=== PATIENT | female | born 1955 | race African-American/Black ===

== ENCOUNTER 2016-09-18 14:42 | Inpatient (IN) | payer MEDICAID ==
[~2016-09-18] VITALS: Ht 154.9 cm; Wt 81.6 kg
[2016-09-18] MEDS ORDERED: metroNIDAZOLE 500mg 100 ML IV SCH (15:00)
[2016-09-18] MEDS ORDERED: Ampicillin/Sulbactam Sod 3 GM in NS 110 ML IV SCH (15:00)
--- NOTE | 2016-09-18 15:11 | Emergency Room Report ---
History of Present Illness General Chief Complaint: Dyspnea/Respdistress Source: Patient Present Illness HPI Patient is a 60-year-old female who presented after having increased left-sided flank pain as well as recent syncopal episodes. The patient had reported having some increased dizziness. She had been having flank pain intermittently for the past 3 days. Patient denied having any dysuria. She had not been vomiting or having diarrhea. Patient had no prior cardiac history. She denies seen a doctor regularly. Allergies: Coded Allergies: ASPIRIN (Verified Allergy, Unknown, 09/18/16) Patient History Past Medical History: see triage record Now: No Reviewed Nursing Documentation: PMH: Agreed, PSxH: Agreed Nursing Documentation-PMH Past Medical History: No Stated History Review of Systems All Other Systems: negative except mentioned in HPI Physical Exam Vital Signs Date Time Temp Pulse Resp B/P Pulse Ox O2 Delivery O2 Flow Rate FiO2 09/18/16 14:48 101.5 132 20 134/77 93 Room Air Sp02 EP Interpretation: reviewed, normal General Appearance: normal inspection, no apparent distress, alert, GCS 15 Head: atraumatic ENT: normal ENT inspection, hearing grossly normal, normal voice Neck: normal inspection, full range of motion, supple, no bony tend Respiratory: normal inspection, lungs clear, normal breath sounds, no respiratory distress, no retraction, no wheezing Cardiovascular #1: regular rate, rhythm, no edema Gastrointestinal: normal inspection, normal bowel sounds, non tender, soft, no guarding, no hernia Genitourinary: CVA tenderness (L) Musculoskeletal: normal inspection, back normal, normal range of motion Neurologic: normal inspection, alert, oriented x3, responsive, energy risk management analyst III-XII nml as tested, speech normal Psychiatric: normal inspection, judgement/insight normal, mood/affect normal Skin: normal inspection, normal color, no rash Medical Decision Making Diagnostic Impression: Primary Impression: Pneumonia Additional Impression: Sepsis ER Course Patient presented for abdominal pain. Differential diagnoses included ischemic bowel, appendicitis, perforated viscus, abdominal aortic aneurysm, inferior myocardial infarction, viral gastroenteritis Because of complexity of patient's case laboratory testing and imaging studies were ordered.Laboratory testing was notable for elevated white blood count. Patient started on IV fluids and IV antibiotics. A CT abdomen pelvis was ordered. A CT abdomen pelvis read by radiology showed bibasilar lung infiltrate right greater than left with fat-containing umbilical hernia. Urinalysis showed no evidence of infection.Dr. Giles was contacted for inpatient management due to need for inpatient monitoring and treatment. Labs Test 09/18/16 16:00 White Blood Count 16.3 K/UL (4.8-10.8) Red Blood Count 4.67 M/UL (4.20-5.40) Hemoglobin 13.4 G/DL (12.0-16.0) Hematocrit 40.1 % (37.0-47.0) Mean Corpuscular Volume 86 FL (80-99) Mean Corpuscular Hemoglobin 28.7 PG (27.0-31.0) Mean Corpuscular Hemoglobin Concent 33.4 G/DL (32.0-36.0) Red Cell Distribution Width 12.6 % (11.6-14.8) Platelet Count 203 K/UL (150-450) Mean Platelet Volume 6.4 FL (6.5-10.1) Neutrophils (%) (Auto) % (45.0-75.0) Lymphocytes (%) (Auto) % (20.0-45.0) Monocytes (%) (Auto) % (1.0-10.0) Eosinophils (%) (Auto) % (0.0-3.0) Basophils (%) (Auto) % (0.0-2.0) Sodium Level 138 mEQ/L (135-145) Potassium Level 3.6 mEQ/L (3.4-4.9) Chloride Level 98 mEQ/L (98-107) Carbon Dioxide Level 23 mEQ/L (20-30) Anion Gap 17 (5-15) Blood Urea Nitrogen 13 mg/dL (7-23) Creatinine 0.9 mg/dL (0.5-0.9) Estimat Glomerular Filtration Rate > 60 mL/min (>60) Glucose Level 108 mg/dL (74-106) Lactic Acid Level 2.00 mmol/L (0.66-2.22) Calcium Level 8.9 mg/dL (8.6-10.2) Total Bilirubin 0.3 mg/dL (0.0-1.2) Aspartate Amino Transf (AST/SGOT) 33 U/L (5-40) Alanine Aminotransferase (ALT/SGPT) 22 U/L (3-33) Alkaline Phosphatase 81 U/L (35-104) Total Creatine Kinase 620 U/L (26-140) Creatine Kinase MB 4.1 ng/mL (< 3.8) Creatine Kinase MB Relative Index 0.6 Troponin I < 0.30 ng/mL (<=0.30) Total Protein 7.4 g/dL (6.6-8.7) Albumin 3.9 g/dL (3.5-5.2) Globulin 3.5 g/dL Albumin/Globulin Ratio 1.1 (1.0-2.7) EKG Diagnostic Results Rate: tachycardiac - 124 Rhythm: NSR ST Segments: no acute changes - 124 Rhythm Strip Diag. Results EP Interpretation: yes Rhythm: NSR - 128, no PVC's, no ectopy Last Vital Signs Date Time Temp Pulse Resp B/P Pulse Ox O2 Delivery O2 Flow Rate FiO2 09/18/16 14:48 101.5 132 20 134/77 93 Room Air Status: unchanged Disposition: ADMITTED INPATIENT Condition: Serious Gabino Elias Sep 18, 2016 15:11
[2016-09-18] MEDS ORDERED: Unasyn 3gm Inj ONE (15:43)
[2016-09-18 16:45] LABS: MEAN CORPUSCULAR HEMOGLOBIN 28.7 PG (27.0-31.0); MEAN CORPUSCULAR HGB CONC 33.4 G/DL (32.0-36.0); MEAN CORPUSCULAR VOLUME 86 FL (80-99); MEAN PLATELET VOLUME 6.4 FL (6.5-10.1); PLATELET COUNT 203 K/UL (150-450); RED BLOOD COUNT 4.67 M/UL (4.20-5.40); RED CELL DISTRIBUTION WIDTH 12.6 % (11.6-14.8); WHITE BLOOD COUNT 16.3 K/UL (4.8-10.8)
[2016-09-18 16:51] VITALS: BP 134/77
[2016-09-18 17:03] LABS: TROPONIN I < 0.30 ng/mL (<=0.30)
[2016-09-18 17:04] LABS: ALANINE AMINOTRANSFERASE 22 U/L (3-33); ALBUMIN/GLOBULIN RATIO 1.1 (1.0-2.7); ANION GAP 17 (5-15); ASPARTATE AMINO TRANSFERASE 33 U/L (5-40); CALCIUM 8.9 mg/dL (8.6-10.2); CARBON DIOXIDE 23 mEQ/L (20-30); CHLORIDE 98 mEQ/L (98-107); CREATININE 0.9 mg/dL (0.5-0.9); GLOMERULAR FILTRATION RATE > 60 mL/min (>60); HEMOLYSIS 5; POTASSIUM 3.6 mEQ/L (3.4-4.9); SODIUM 138 mEQ/L (135-145); TOTAL PROTEIN 7.4 g/dL (6.6-8.7)
[2016-09-18 17:11] LABS: REFLEX LACTIC ACID YES OR NO YES
[2016-09-18 17:14] LABS: CKMB 4.1 ng/mL (< 3.8)
[2016-09-18 17:28] LABS: BAND NEUTROPHILS % (MANUAL) 8 % (0-8); BASOPHILS % (MANUAL) 0 % (0-2); EOSINOPHILS % (MANUAL) 0 % (0-3); LYMPHOCYTES % (MANUAL) 2 % (20-45); NEUTROPHILS % (MANUAL) 82 % (45-75); PLATELET ESTIMATE ADEQUATE; PLATELET MORPHOLOGY NORMAL; TOTAL CELLS COUNTED 100
[2016-09-18 17:32] LABS: APPEARANCE,URINE CLEAR; KETONES,URINE NEGATIVE (NEGATIVE); LEUKOCYTE ESTERASE ,URINE NEGATIVE (NEGATIVE); NITRITE,URINE NEGATIVE (NEGATIVE); PH,URINE 5 (4.5-8.0); PROTEIN,URINE NEGATIVE (NEGATIVE); UROBILINOGEN,URINE NORMAL MG/DL (0.0-1.0)
[2016-09-18 17:38] LABS: RBC,URINE 0-2 /HPF (0 - 2); SQUAMOUS EPITHELIAL CELL,UR OCCASIONAL /LPF (NONE/OCC); WBC,URINE 0-2 /HPF (0 - 2)
[2016-09-18] MEDS ORDERED: NKM (17:56)
--- NOTE | 2016-09-18 18:49 | Cardiology Progress Note ---
Assessment/Plan Assessment/Plan The patient is seen and examined, full consult note will be dictated. Objective Last 24 Hour Vital Signs Date Time Temp Pulse Resp B/P Pulse Ox O2 Delivery O2 Flow Rate FiO2 09/18/16 16:53 115 20 Room Air 09/18/16 16:51 101.5 95 21 134/77 95 Room Air 09/18/16 14:48 101.5 132 20 134/77 93 Room Air Laboratory Tests Test 09/18/16 16:00 09/18/16 17:20 White Blood Count 16.3 K/UL (4.8-10.8) H Red Blood Count 4.67 M/UL (4.20-5.40) Hemoglobin 13.4 G/DL (12.0-16.0) Hematocrit 40.1 % (37.0-47.0) Mean Corpuscular Volume 86 FL (80-99) Mean Corpuscular Hemoglobin 28.7 PG (27.0-31.0) Mean Corpuscular Hemoglobin Concent 33.4 G/DL (32.0-36.0) Red Cell Distribution Width 12.6 % (11.6-14.8) Platelet Count 203 K/UL (150-450) Mean Platelet Volume 6.4 FL (6.5-10.1) L Neutrophils (%) (Auto) % (45.0-75.0) Lymphocytes (%) (Auto) % (20.0-45.0) Monocytes (%) (Auto) % (1.0-10.0) Eosinophils (%) (Auto) % (0.0-3.0) Basophils (%) (Auto) % (0.0-2.0) Differential Total Cells Counted 100 Neutrophils % (Manual) 82 % (45-75) H Lymphocytes % (Manual) 2 % (20-45) L Monocytes % (Manual) 8 % (1-10) Eosinophils % (Manual) 0 % (0-3) Basophils % (Manual) 0 % (0-2) Band Neutrophils 8 % (0-8) Platelet Estimate Adequate Platelet Morphology Normal Red Blood Cell Morphology Normal Sodium Level 138 mEQ/L (135-145) Potassium Level 3.6 mEQ/L (3.4-4.9) Chloride Level 98 mEQ/L (98-107) Carbon Dioxide Level 23 mEQ/L (20-30) Anion Gap 17 (5-15) H Blood Urea Nitrogen 13 mg/dL (7-23) Creatinine 0.9 mg/dL (0.5-0.9) Estimat Glomerular Filtration Rate > 60 mL/min (>60) Glucose Level 108 mg/dL (74-106) H Lactic Acid Level 2.00 mmol/L (0.66-2.22) Calcium Level 8.9 mg/dL (8.6-10.2) Total Bilirubin 0.3 mg/dL (0.0-1.2) Aspartate Amino Transf (AST/SGOT) 33 U/L (5-40) Alanine Aminotransferase (ALT/SGPT) 22 U/L (3-33) Alkaline Phosphatase 81 U/L (35-104) Total Creatine Kinase 620 U/L (26-140) H Creatine Kinase MB 4.1 ng/mL (< 3.8) H Creatine Kinase MB Relative Index 0.6 Troponin I < 0.30 ng/mL (<=0.30) Total Protein 7.4 g/dL (6.6-8.7) Albumin 3.9 g/dL (3.5-5.2) Globulin 3.5 g/dL Albumin/Globulin Ratio 1.1 (1.0-2.7) Urine Color Pale yellow Urine Appearance Clear Urine pH 5 (4.5-8.0) Urine Specific [place] 1.015 (1.005-1.035) Urine Protein Negative (NEGATIVE) Urine Glucose (UA) Negative (NEGATIVE) Urine Ketones Negative (NEGATIVE) Urine Occult Blood 1+ (NEGATIVE) H Urine Nitrite Negative (NEGATIVE) Urine Bilirubin Negative (NEGATIVE) Urine Urobilinogen Normal MG/DL (0.0-1.0) Urine Leukocyte Esterase Negative (NEGATIVE) Urine RBC 0-2 /HPF (0 - 2) Urine WBC 0-2 /HPF (0 - 2) Urine Squamous Epithelial Cells Occasional /LPF Urine Bacteria None /HPF (NONE) MIGUEL ÁNGEL LEWIS Sep 18, 2016 18:49
[2016-09-18 19:19] VITALS: BP 114/71
[2016-09-18 19:21] VITALS: BP 115/76
[2016-09-18 19:22] VITALS: BP 123/67
[2016-09-18 20:00] VITALS: BP 135/69
[2016-09-18] MEDS ORDERED: Norco 10mg/325mg tab ORAL PRN (20:15)
[2016-09-18] MEDS: Heparin 5000 units/ml inj SUBQ SCH (20:54)
[2016-09-18] MEDS ORDERED: cefTRIAXone 2 GM in D5W 110 ML IVPB SCH (21:00)
[2016-09-18] MEDS ORDERED: Azithromycin 500 MG in D5W 275 ML IV SCH (22:00)
[2016-09-19] VITALS (7 sets, daily range): BP systolic 95–131; BP diastolic 53–83
[2016-09-19 07:58] LABS: MEAN CORPUSCULAR HEMOGLOBIN 27.8 PG (27.0-31.0); MEAN CORPUSCULAR HGB CONC 32.2 G/DL (32.0-36.0); MEAN CORPUSCULAR VOLUME 86 FL (80-99); MEAN PLATELET VOLUME 7.2 FL (6.5-10.1); PLATELET COUNT 231 K/UL (150-450); RED BLOOD COUNT 4.46 M/UL (4.20-5.40); RED CELL DISTRIBUTION WIDTH 12.7 % (11.6-14.8); WHITE BLOOD COUNT 18.2 K/UL (4.8-10.8)
[2016-09-19 08:18] LABS: ALANINE AMINOTRANSFERASE 17 U/L (3-33); ALBUMIN/GLOBULIN RATIO 0.9 (1.0-2.7); ANION GAP 12 (5-15); ASPARTATE AMINO TRANSFERASE 24 U/L (5-40); CALCIUM 8.4 mg/dL (8.6-10.2); CARBON DIOXIDE 27 mEQ/L (20-30); CHLORIDE 101 mEQ/L (98-107); CHOLESTEROL 156 mg/dL (< 200); CHOLESTEROL/HDL RATIO 2.5 (3.3-4.4); CREATININE 0.9 mg/dL (0.5-0.9); GLOMERULAR FILTRATION RATE > 60 mL/min (>60); HEMOLYSIS 11; LDL CHOLESTEROL (CALC.) 78 mg/dL (60-99); SODIUM 140 mEQ/L (135-145); TOTAL PROTEIN 6.9 g/dL (6.6-8.7)
[2016-09-19 08:25] LABS: HEMOGLOBIN A1C 5.7 % (< 6.0)
[2016-09-19 08:44] LABS: BAND NEUTROPHILS % (MANUAL) 0 % (0-8); BASOPHILS % (MANUAL) 1 % (0-2); EOSINOPHILS % (MANUAL) 0 % (0-3); LYMPHOCYTES % (MANUAL) 18 % (20-45); NEUTROPHILS % (MANUAL) 74 % (45-75); PLATELET ESTIMATE ADEQUATE; PLATELET MORPHOLOGY NORMAL; TOTAL CELLS COUNTED 100
--- NOTE | 2016-09-19 08:56 | Diagnostic Imaging Report ---
Indication: Left flank pain Technique: Continuous helical scanning was performed without any contrast material from the diaphragms through the pelvis . Axial, sagittal, and coronal images were generated. Dose: Total Dose Length Product - DLP [address] Dose Index - CTDIvol(s) 17.73 mGy. Comparison: None Findings: There is mixed interstitial and alveolar infiltrates in the right lower lobe. Some patchy groundglass density is also noted in the left lower lobe. The liver is low density. The gallbladder is unremarkable. The spleen is normal. The pancreas is normal. Aorta and inferior vena cava are normal caliber. There are some calcified nodes in the retroperitoneum. The kidneys are unremarkable. The bowel is normal caliber. The appendix is normal in caliber. The bladder is normal. Uterus is absent. Ovaries are not identified. Mild degenerative changes noted in the spine. There is a small umbilical hernia containing fat. Impression: Calcified nodes in the retroperitoneum consistent with old granulomatous disease. Normal appendix. No evidence of urinary calculi. Fatty liver. Bilateral lower lobe pulmonary infiltrates, right greater than left. Small umbilical hernia containing fat. The above report is concordant with preliminary reading by [facility] . The CT scanner at [facility] is accredited by the [employer] and the scans are performed using protocols designed to limit radiation exposure to as low as reasonably achievable to attain images of sufficient resolution adequate for diagnostic evaluation.
[2016-09-19] MEDS: Heparin 5000 units/ml inj SUBQ SCH ×2 (09:04→22:01)
--- NOTE | 2016-09-19 10:20 | History & Physical ---
History and Physical History & Physicial seen and examined. Dictation completed Hannah Giles MD Sep 19, 2016 10:20
--- NOTE | 2016-09-19 10:22 | General Progress Note ---
Assessment/Plan Status: stable Assessment/Plan 1- Acute encephalopathy 2- Sepsis: source work in progress! 3- Right LL infiltrate plan: neuro, cardio, ID services are consulted Subjective ROS Limited/Unobtainable: No Constitutional: Reports: malaise HEENT: Reports: no symptoms Cardiovascular: Reports: no symptoms Respiratory: Reports: no symptoms Gastrointestinal/Abdominal: Reports: no symptoms Allergies: Coded Allergies: ASPIRIN (Verified Allergy, Unknown, 09/18/16) Objective Last 24 Hour Vital Signs Date Time Temp Pulse Resp B/P Pulse Ox O2 Delivery O2 Flow Rate FiO2 09/19/16 04:00 97.9 74 18 101/53 97 Room Air 09/19/16 04:00 74 101 85 09/19/16 04:00 67 09/19/16 00:00 98.1 83 18 95/62 95 Room Air 09/19/16 00:00 84 09/18/16 21:53 98.7 09/18/16 20:00 100.6 103 20 135/69 95 Room Air 09/18/16 19:39 99.1 09/18/16 19:39 99.1 09/18/16 19:37 99.3 112 20 123/67 95 Room Air 09/18/16 19:22 99.3 112 20 123/67 95 Room Air 09/18/16 19:21 101.5 105 20 115/76 95 Room Air 09/18/16 19:19 101.5 105 20 114/71 95 Room Air 09/18/16 16:53 115 20 Room Air 09/18/16 16:51 101.5 95 21 134/77 95 Room Air 09/18/16 14:48 101.5 132 20 134/77 93 Room Air Intake and Output 09/18/16 09/19/16 19:00 07:00 Intake Total 1150 ml 625 ml Balance 1150 ml 625 ml Intake Oral 240 ml IV Total 385 ml Other 1150 ml # Voids 1 # Bowel Movements 1 Laboratory Tests 09/18/16 16:00: White Blood Count 16.3H, Red Blood Count 4.67, Hemoglobin 13.4, Hematocrit 40.1 , Mean Corpuscular Volume 86, Mean Corpuscular Hemoglobin 28.7, Mean Corpuscular Hemoglobin Concent 33.4, Red Cell Distribution Width 12.6, Platelet Count 203, Mean Platelet Volume 6.4L, Neutrophils (%) (Auto) , Lymphocytes (%) ( Auto) , Monocytes (%) (Auto) , Eosinophils (%) (Auto) , Basophils (%) (Auto) , Differential Total Cells Counted 100, Neutrophils % (Manual) 82H, Lymphocytes % (Manual) 2L, Monocytes % (Manual) 8, Eosinophils % (Manual) 0, Basophils % ( Manual) 0, Band Neutrophils 8, Platelet Estimate Adequate, Platelet Morphology Normal, Red Blood Cell Morphology Normal, Sodium Level 138, Potassium Level 3.6 , Chloride Level 98, Carbon Dioxide Level 23, Anion Gap 17H, Blood Urea Nitrogen 13, Creatinine 0.9, Estimat Glomerular Filtration Rate > 60, Glucose Level 108H, Lactic Acid Level 2.00, Calcium Level 8.9, Total Bilirubin 0.3, Aspartate Amino Transf (AST/SGOT) 33, Alanine Aminotransferase (ALT/SGPT) 22, Alkaline Phosphatase 81, Total Creatine Kinase 620H, Creatine Kinase MB 4.1H, Creatine Kinase MB Relative Index 0.6, Troponin I < 0.30, Total Protein 7.4, Albumin 3.9, Globulin 3.5, Albumin/Globulin Ratio 1.1 09/18/16 17:20: Urine Color Pale yellow, Urine Appearance Clear, Urine pH 5, Urine Specific [place] 1.015, Urine Protein Negative, Urine Glucose (UA) Negative, Urine Ketones Negative, Urine Occult Blood 1+H, Urine Nitrite Negative, Urine Bilirubin Negative, Urine Urobilinogen Normal, Urine Leukocyte Esterase Negative , Urine RBC 0-2, Urine WBC 0-2, Urine Squamous Epithelial Cells Occasional, Urine Bacteria None 09/18/16 19:21: Lactic Acid Level 1.00 09/19/16 07:27: White Blood Count 18.2H, Red Blood Count 4.46, Hemoglobin 12.4, Hematocrit 38.4 , Mean Corpuscular Volume 86, Mean Corpuscular Hemoglobin 27.8, Mean Corpuscular Hemoglobin Concent 32.2, Red Cell Distribution Width 12.7, Platelet Count 231, Mean Platelet Volume 7.2, Neutrophils (%) (Auto) , Lymphocytes (%) ( Auto) , Monocytes (%) (Auto) , Eosinophils (%) (Auto) , Basophils (%) (Auto) , Differential Total Cells Counted 100, Neutrophils % (Manual) 74, Lymphocytes % ( Manual) 18L, Monocytes % (Manual) 7, Eosinophils % (Manual) 0, Basophils % ( Manual) 1, Band Neutrophils 0, Platelet Estimate Adequate, Platelet Morphology Normal, Red Blood Cell Morphology Normal, Sodium Level 140, Potassium Level 4.0 , Chloride Level 101, Carbon Dioxide Level 27, Anion Gap 12, Blood Urea Nitrogen 11, Creatinine 0.9, Estimat Glomerular Filtration Rate > 60, Glucose Level 95, Calcium Level 8.4L, Total Bilirubin 0.4, Aspartate Amino Transf (AST/ SGOT) 24, Alanine Aminotransferase (ALT/SGPT) 17, Alkaline Phosphatase 70, Total Protein 6.9, Albumin 3.4L, Globulin 3.5, Albumin/Globulin Ratio 0.9L, Hemoglobin A1c 5.7, Pro-B-Type Natriuretic Peptide 119, Triglycerides Level 81, Cholesterol Level 156, LDL Cholesterol 78, HDL Cholesterol 62H, Cholesterol/HDL Ratio 2.5L, Thyroid Stimulating Hormone (TSH) 2.370 Height (Feet): 5 Height (Inches): 1.00 Weight (Pounds): 180 General Appearance: no apparent distress EENT: PERRL/EOMI Neck: supple Cardiovascular: normal rate Respiratory/Chest: lungs clear Abdomen: soft Extremities: non-tender Neurologic: crane hooker II-XII grossly normal, oriented x 3 Hannah Giles MD Sep 19, 2016 10:22
--- NOTE | 2016-09-19 11:21 | Diagnostic Imaging Report ---
Indication: PAIN Technique: Continuous helical CT scanning of the head was performed without intravenous contrast material. Axial and coronal 5 mm sections were generated. Dose: Total Dose Length Product - DLP [address] Dose Index - CTDIvol(s) 70.38 mGy. 1277 Comparison:None. Findings: The ventricular system is normal in size and configuration. There is no shift of midline structures. No abnormal extra-axial fluid collections are noted. There is no evidence of intracerebral bleeding. No other abnormal high or low density areas are noted within the brain. Impression: Normal CT scan of the head without contrast material. The CT scanner at [facility] is accredited by the [place] [employer] and the scans are performed using protocols designed to limit radiation exposure to as low as reasonably achievable to attain images of sufficient resolution adequate for diagnostic evaluation.
[2016-09-19] MEDS ORDERED: Tubing IV Secondary IV ONE (13:36)
--- NOTE | 2016-09-19 15:44 | Cardiology Progress Note ---
Assessment/Plan Assessment/Plan 1. Syncopal event, most likely due to hypovolemia, in view of recent respiratory infection, initial orthostatics were positive, s/p hydration in ED. No cardiac arrhythmias so far. 2. Normal LVEF at 65%. 3. Hx of recurrent syncope. Subjective Subjective Sinus rhythm at 85. Orthostatic vitals are negative. Objective Last 24 Hour Vital Signs Date Time Temp Pulse Resp B/P Pulse Ox O2 Delivery O2 Flow Rate FiO2 09/19/16 12:00 97.9 81 19 119/71 97 Room Air 09/19/16 12:00 77 09/19/16 10:24 98.1 75 18 122/69 98 Room Air 09/19/16 09:00 80 86 85 09/19/16 08:00 98.0 77 18 121/64 96 Room Air 09/19/16 08:00 72 09/19/16 04:00 97.9 74 18 101/53 97 Room Air 09/19/16 04:00 74 101 85 09/19/16 04:00 67 09/19/16 00:00 98.1 83 18 95/62 95 Room Air 09/19/16 00:00 84 09/18/16 21:53 98.7 09/18/16 20:00 100.6 103 20 135/69 95 Room Air 09/18/16 19:39 99.1 09/18/16 19:39 99.1 09/18/16 19:37 99.3 112 20 123/67 95 Room Air 09/18/16 19:22 99.3 112 20 123/67 95 Room Air 09/18/16 19:21 101.5 105 20 115/76 95 Room Air 09/18/16 19:19 101.5 105 20 114/71 95 Room Air 09/18/16 16:53 115 20 Room Air 09/18/16 16:51 101.5 95 21 134/77 95 Room Air Intake and Output 09/18/16 09/19/16 19:00 07:00 Intake Total 1150 ml 625 ml Balance 1150 ml 625 ml Intake Oral 240 ml IV Total 385 ml Other 1150 ml # Voids 1 # Bowel Movements 1 2D Echo: LVEF 65%, rvsp 20 mmHg Laboratory Tests Test 09/18/16 16:00 09/18/16 17:20 09/18/16 19:21 09/19/16 07:27 White Blood Count 16.3 K/UL (4.8-10.8) H 18.2 K/UL (4.8-10.8) H Red Blood Count 4.67 M/UL (4.20-5.40) 4.46 M/UL (4.20-5.40) Hemoglobin 13.4 G/DL (12.0-16.0) 12.4 G/DL (12.0-16.0) Hematocrit 40.1 % (37.0-47.0) 38.4 % (37.0-47.0) Mean Corpuscular Volume 86 FL (80-99) 86 FL (80-99) Mean Corpuscular Hemoglobin 28.7 PG (27.0-31.0) 27.8 PG (27.0-31.0) Mean Corpuscular Hemoglobin Concent 33.4 G/DL (32.0-36.0) 32.2 G/DL (32.0-36.0) Red Cell Distribution Width 12.6 % (11.6-14.8) 12.7 % (11.6-14.8) Platelet Count 203 K/UL (150-450) 231 K/UL (150-450) Mean Platelet Volume 6.4 FL (6.5-10.1) L 7.2 FL (6.5-10.1) Neutrophils (%) (Auto) % (45.0-75.0) % (45.0-75.0) Lymphocytes (%) (Auto) % (20.0-45.0) % (20.0-45.0) Monocytes (%) (Auto) % (1.0-10.0) % (1.0-10.0) Eosinophils (%) (Auto) % (0.0-3.0) % (0.0-3.0) Basophils (%) (Auto) % (0.0-2.0) % (0.0-2.0) Differential Total Cells Counted 100 100 Neutrophils % (Manual) 82 % (45-75) H 74 % (45-75) Lymphocytes % (Manual) 2 % (20-45) L 18 % (20-45) L Monocytes % (Manual) 8 % (1-10) 7 % (1-10) Eosinophils % (Manual) 0 % (0-3) 0 % (0-3) Basophils % (Manual) 0 % (0-2) 1 % (0-2) Band Neutrophils 8 % (0-8) 0 % (0-8) Platelet Estimate Adequate Adequate Platelet Morphology Normal Normal Red Blood Cell Morphology Normal Normal Sodium Level 138 mEQ/L (135-145) 140 mEQ/L (135-145) Potassium Level 3.6 mEQ/L (3.4-4.9) 4.0 mEQ/L (3.4-4.9) Chloride Level 98 mEQ/L (98-107) 101 mEQ/L (98-107) Carbon Dioxide Level 23 mEQ/L (20-30) 27 mEQ/L (20-30) Anion Gap 17 (5-15) H 12 (5-15) Blood Urea Nitrogen 13 mg/dL (7-23) 11 mg/dL (7-23) Creatinine 0.9 mg/dL (0.5-0.9) 0.9 mg/dL (0.5-0.9) Estimat Glomerular Filtration Rate > 60 mL/min (>60) > 60 mL/min (>60) Glucose Level 108 mg/dL (74-106) H 95 mg/dL (74-106) Lactic Acid Level 2.00 mmol/L (0.66-2.22) 1.00 mmol/L (0.66-2.22) Calcium Level 8.9 mg/dL (8.6-10.2) 8.4 mg/dL (8.6-10.2) L Total Bilirubin 0.3 mg/dL (0.0-1.2) 0.4 mg/dL (0.0-1.2) Aspartate Amino Transf (AST/SGOT) 33 U/L (5-40) 24 U/L (5-40) Alanine Aminotransferase (ALT/SGPT) 22 U/L (3-33) 17 U/L (3-33) Alkaline Phosphatase 81 U/L (35-104) 70 U/L (35-104) Total Creatine Kinase 620 U/L (26-140) H Creatine Kinase MB 4.1 ng/mL (< 3.8) H Creatine Kinase MB Relative Index 0.6 Troponin I < 0.30 ng/mL (<=0.30) Total Protein 7.4 g/dL (6.6-8.7) 6.9 g/dL (6.6-8.7) Albumin 3.9 g/dL (3.5-5.2) 3.4 g/dL (3.5-5.2) L Globulin 3.5 g/dL 3.5 g/dL Albumin/Globulin Ratio 1.1 (1.0-2.7) 0.9 (1.0-2.7) L Urine Color Pale yellow Urine Appearance Clear Urine pH 5 (4.5-8.0) Urine Specific [place] 1.015 (1.005-1.035) Urine Protein Negative (NEGATIVE) Urine Glucose (UA) Negative (NEGATIVE) Urine Ketones Negative (NEGATIVE) Urine Occult Blood 1+ (NEGATIVE) H Urine Nitrite Negative (NEGATIVE) Urine Bilirubin Negative (NEGATIVE) Urine Urobilinogen Normal MG/DL (0.0-1.0) Urine Leukocyte Esterase Negative (NEGATIVE) Urine RBC 0-2 /HPF (0 - 2) Urine WBC 0-2 /HPF (0 - 2) Urine Squamous Epithelial Cells Occasional /LPF Urine Bacteria None /HPF (NONE) Hemoglobin A1c 5.7 % (< 6.0) Pro-B-Type Natriuretic Peptide 119 pg/mL (0-125) Triglycerides Level 81 mg/dL (< 150) Cholesterol Level 156 mg/dL (< 200) LDL Cholesterol 78 mg/dL (60-99) HDL Cholesterol 62 mg/dL (> 60) H Cholesterol/HDL Ratio 2.5 (3.3-4.4) L Thyroid Stimulating Hormone (TSH) 2.370 uIU/mL (0.300-4.500) Objective HEENT: Normocephalic, atraumatic, PERRLA, EOMI Neck: - JVD, no carotid bruit Respiratory: coarse breath sounds B/L Cardiovascular: Normal S1S2, tachycardic, regular, rate and rhythm, no murmurs , gallops or rubs. Gastrointestinal: normal inspection, normal bowel sounds, non tender, soft, no guarding, no hernia Musculoskeletal: normal inspection, back normal, normal range of motion Skin: normal inspection, normal color, no rash MIGUEL ÁNGEL LEWIS Sep 19, 2016 15:44
[2016-09-19 16:49] LABS: TROPONIN I < 0.30 ng/mL (<=0.30)
[2016-09-19] MEDS ORDERED: Norco 10mg/325mg tab ORAL PRN (18:00)
[2016-09-19] MEDS: cefTRIAXone 2 GM in D5W 110 ML IVPB SCH (21:00)
[2016-09-19] MEDS ORDERED: Azithromycin 500 MG in D5W 275 ML IV SCH (22:00)
--- NOTE | 2016-09-19 22:18 | History and Physical Report ---
DATE OF ADMISSION: 09/18/2016 SOURCE OF INFORMATION: Patient and EMR. HISTORY OF PRESENT ILLNESS: The patient is a pleasant 60-year-old female with unremarkable past medical history who presented with the acute onset of loss of consciousness. It happened at home. No weakness. Possibility of the head trauma cannot be excluded. No reported loss of control over the bladder or bowel has been reported by the patient after she gained her consciousness. COURSE OF THE ER ASSESSMENT: Proved the patient has fever of 101 degrees and tachycardic as much as 130. Initial evaluation of the abdomen and pelvic CT scan did not show any evidence of acute pathology except bilateral pulmonary infiltrates. PAST MEDICAL HISTORY: Denies. PAST SURGICAL HISTORY: Hysterectomy. ALLERGIES: To aspirin. SOCIAL HISTORY: The patient has one child. The patient is living single. No illicit drug abuse. No alcohol abuse. PHYSICAL EXAMINATION: VITAL SIGNS: Blood pressure 130/80, temperature 101.5 degrees, pulse rate 130, respiratory rate 18, and pulse oximetry 93% on room air. HEAD AND NECK: Atraumatic and normocephalic. CHEST: Clear to auscultation. HEART: S1 and S2. Regular rate and rhythm. ABDOMEN: Soft. No organomegaly. MUSCULOSKELETAL: No gross focal motor deficit. NEUROLOGY: The patient is awake, alert, and oriented x3. LABORATORY AND DIAGNOSTIC DATA: Lab results dated 09/19/2016, shows WBC 16.3, hemoglobin 13.4, and platelets 200,000. Sodium 138, potassium 3.6, BUN 13, and creatinine 0.1. AST and ALT normal. Creatine kinase 620. LDL 78. TSH 2.3. Urinalysis is unremarkable. ASSESSMENT: 1. Acute encephalopathy. 2. Sepsis. 3. Community-acquired pneumonia, a provisional diagnosis. 4. Head trauma - a probable diagnosis. 5. Abnormal creatine kinase. 6. Abnormal blood sugar. 7. Gastrointestinal and deep vein thrombosis prophylaxis. PLAN OF CARE: I will obtain the CT scan of the brain. I will consult the Neurology. Invited the Infectious Diseases for a second opinion as far as the source of infection. Continue with the current empiric antibiotic regimen. Hannah Giles M.D. DR: Francoise JOB#: [id number] CC: PATRICIA
[2016-09-20] VITALS (7 sets, daily range): BP systolic 127–147; BP diastolic 69–90
--- NOTE | 2016-09-20 00:28 | Consultation ---
DATE OF CONSULTATION: 09/19/2016 NEUROLOGICAL CONSULTATION REQUESTING PHYSICIAN: Hannah Giels M.D. HISTORY OF PRESENT ILLNESS: This is a 60-year-old female seen in neurological consultation to evaluate new changes in episodes of vertigo and transient loss of consciousness. According to the patient, she is suffering from chronic low back pain, but approximately week ago, she has had developed congestion in her chest, coughing, and sneezing, then on , woke up at 5 a.m. to work and as she was walking towards the bathroom, she started to develop an acute vertigo with spinning sensation. Because of spinning sensation, at that point she lost consciousness, landing on her back. She woke up feeling suddenly weak and sweaty. She had chills and cough. She crawled slowly to the bed, called her job that she is sick, and took the day off. She developed pain in her right side of the head, right ear, and she had profound generalized weakness. Gradually, over daytime, symptoms started to resolve. Following day, she was able to go back to work feeling fairly well. 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 Yesterday, on Tuesday, while waiting a bus, she had episodes of spinning sensation. She felt that something was wrong, again feeling chilled and palpitations. She called her family and the niece came to crop picker, but told her that she does not look good and so they brought her to emergency room. She was apparently complaining of left-sided flank pain and recent syncopal episode, some increase in dizziness. Her temperature was 101.5, heart rate of 132, blood pressure 134/77. Radiological studies included CAT scan of the brain, which was normal with no pathology or no midline shift. A CT of the abdomen and pelvis was obtained revealing bilateral lower lobe pulmonary infiltrates with right more than left. The patient was diagnosed with pneumonia, syncope, but also acknowledges to have frequent encephalopathy, and sepsis. The patient indicates that since admission to present, she actually felt improvement. Her lab work included CBC study with elevated WBCs of 15.3. Her chemistry panel, anion gap of 17, blood sugar 108, and of 20. Her lipid panel, unremarkable. Her urinalysis is normal. PAST MEDICAL HISTORY: The patient has a history of chronic low back pain. She is unaware of any other major medical problems. She was not taking any medication. MEDICATIONS: Following admission to present, she is maintained on IV fluids, antibiotics, Flagyl, Tylenol p.r.n., subcutaneous heparin, Stevenson p.r.n., ibuprofen, and pantoprazole. ALLERGIES: Aspirin. FAMILY HISTORY: Noncontributory. SOCIAL HISTORY: The patient lives alone. At times, her son stays with her. There is no alcohol. No drug abuse. Nonsmoker. 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 REVIEW OF SYSTEMS: Today, she is feeling fairly well. Denying headache or dizziness, but still has congestion in her chest, dry cough, and generalized weakness. No unilateral weakness, numbness, or tingling. PHYSICAL EXAMINATION: GENERAL: The patient is a well-developed and well-nourished female, not in acute distress, and lying comfortably in bed. VITAL SIGNS: Blood pressure 112/86, respirations 15, and temperature 98.1. HEENT: Head normocephalic. No evidence of injuries. Eyes, ears, nose, and throat are clear. NECK: Supple. No meningeal signs. MUSCULOSKELETAL: Examination unremarkable. There is no deformities. Peripheral pulses 1+ symmetric. MENTAL STATUS: The patient is alert and oriented x3. Speech is fluent with no evidence of aphasia or apraxia. Cognitive function is normal. CRANIAL NERVE II: Pupils are both responding to light and accommodation. Extraocular movement intact. No nystagmus. CRANIAL NERVE V: Normal corneal responses. CRANIAL NERVE VII: No facial asymmetry. CRANIAL NERVE VIII: Grossly normal hearing. CRANIAL NERVE IX THROUGH XII: Within normal limits. MOTOR EXAMINATION: Normal muscle tone. Strength 5/5 in all extremities. No involuntary movement. Deep reflexes 1+ symmetric with downgoing toes on both sides. SENSORY EXAM: Normal to pinprick and light touch. Gait is slow, but stable. IMPRESSION: 1. This is a 60-year-old female with a new onset of pneumonia/sepsis, who presented with a syncopal episode probably vasovagal, and brief paroxysmal positional vertigo. 2. Paroxysmal sinus tachycardia. 3. Chronic back pain. 4. Rhabdomyolysis. RECOMMENDATION: The patient to continue with IV fluids and antibiotics. Maintain cardiac monitoring for paroxysmal tachycardia or arrhythmia. There is no clinical description to suggest seizure or TIA. The patient to remain under close observation for any paroxysmal events. Thank you for allowing me to see this interesting patient in neurological consultation. Jose Peters M.D. DR: EMMIE JOB#: [id number] CC:
[2016-09-20] MEDS: Heparin 5000 units/ml inj SUBQ SCH ×2 (08:27→20:37)
[2016-09-20 10:37] LABS: BASOPHILS % (AUTO) 0.8 % (0.0-2.0); EOSINOPHILS % (AUTO) 0.7 % (0.0-3.0); LYMPHOCYTES % (AUTO) 29.3 % (20.0-45.0); MEAN CORPUSCULAR HEMOGLOBIN 27.3 PG (27.0-31.0); MEAN CORPUSCULAR HGB CONC 32.1 G/DL (32.0-36.0); MEAN CORPUSCULAR VOLUME 85 FL (80-99); MEAN PLATELET VOLUME 7.4 FL (6.5-10.1); MONOCYTES % (AUTO) 4.3 % (1.0-10.0); NEUTROPHILS % (AUTO) 64.9 % (45.0-75.0); PLATELET COUNT 232 K/UL (150-450); RED BLOOD COUNT 4.52 M/UL (4.20-5.40); RED CELL DISTRIBUTION WIDTH 12.7 % (11.6-14.8); WHITE BLOOD COUNT 10.4 K/UL (4.8-10.8)
[2016-09-20 10:57] LABS: ALANINE AMINOTRANSFERASE 15 U/L (3-33); ALBUMIN/GLOBULIN RATIO 0.8 (1.0-2.7); ANION GAP 15 (5-15); ASPARTATE AMINO TRANSFERASE 19 U/L (5-40); CALCIUM 8.7 mg/dL (8.6-10.2); CARBON DIOXIDE 22 mEQ/L (20-30); CHLORIDE 101 mEQ/L (98-107); CREATININE 0.8 mg/dL (0.5-0.9); GLOMERULAR FILTRATION RATE > 60 mL/min (>60); HEMOLYSIS 7; POTASSIUM 4.1 mEQ/L (3.4-4.9); SODIUM 138 mEQ/L (135-145); TOTAL PROTEIN 7.2 g/dL (6.6-8.7)
--- NOTE | 2016-09-20 11:33 | General Progress Note ---
Assessment/Plan Status: stable Assessment/Plan 1. Acute encephalopathy. 2. Sepsis. 3. Community-acquired pneumonia, a provisional diagnosis. 4. Head trauma - a probable diagnosis. 5. Abnormal creatine kinase. 6. Abnormal blood sugar. 7. Gastrointestinal and deep vein thrombosis prophylaxis. plan: neuro, cardio,Notes are reveiwed current workup Subjective ROS Limited/Unobtainable: No Constitutional: Reports: no symptoms HEENT: Reports: no symptoms Cardiovascular: Reports: no symptoms Allergies: Coded Allergies: ASPIRIN (Verified Allergy, Unknown, 09/18/16) Objective Last 24 Hour Vital Signs Date Time Temp Pulse Resp B/P Pulse Ox O2 Delivery O2 Flow Rate FiO2 09/20/16 09:00 83 85 98 09/20/16 08:00 99.5 85 18 129/69 96 Room Air 09/20/16 04:00 98.4 81 18 133/75 95 Room Air 09/20/16 00:00 98.3 77 18 127/81 97 Room Air 09/19/16 21:00 70 75 78 09/19/16 20:00 98.6 83 18 131/83 98 Room Air 09/19/16 16:00 98.0 81 19 126/79 97 Room Air 09/19/16 16:00 81 09/19/16 12:00 97.9 81 19 119/71 97 Room Air 09/19/16 12:00 77 Intake and Output 09/19/16 09/20/16 19:00 07:00 Intake Total 360 ml Balance 360 ml Intake Oral 360 ml # Voids 1 # Bowel Movements 1 Laboratory Tests 09/19/16 16:05: Troponin I < 0.30 09/20/16 10:05: White Blood Count 10.4, Red Blood Count 4.52, Hemoglobin 12.3, Hematocrit 38.4, Mean Corpuscular Volume 85, Mean Corpuscular Hemoglobin 27.3, Mean Corpuscular Hemoglobin Concent 32.1, Red Cell Distribution Width 12.7, Platelet Count 232, Mean Platelet Volume 7.4, Neutrophils (%) (Auto) 64.9, Lymphocytes (%) (Auto) 29.3, Monocytes (%) (Auto) 4.3, Eosinophils (%) (Auto) 0.7, Basophils (%) (Auto ) 0.8, Sodium Level 138, Potassium Level 4.1, Chloride Level 101, Carbon Dioxide Level 22, Anion Gap 15, Blood Urea Nitrogen 11, Creatinine 0.8, Estimat Glomerular Filtration Rate > 60, Glucose Level 86, Calcium Level 8.7, Total Bilirubin < 0.2, Aspartate Amino Transf (AST/SGOT) 19, Alanine Aminotransferase (ALT/SGPT) 15, Alkaline Phosphatase 72, Total Protein 7.2, Albumin 3.4L, Globulin 3.8, Albumin/Globulin Ratio 0.8L Height (Feet): 5 Height (Inches): 1.00 Weight (Pounds): 180 General Appearance: WD/WN EENT: PERRL/EOMI Neck: supple Cardiovascular: normal rate Respiratory/Chest: lungs clear Abdomen: soft Extremities: non-tender 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
[2016-09-20] MEDS ORDERED: Azithromycin 250mg tab ORAL SCH (14:45)
--- NOTE | 2016-09-20 18:52 | Cardiology Progress Note ---
Assessment/Plan Assessment/Plan 1. Syncopal event, most likely due to hypovolemia, in view of recent respiratory infection, initial orthostatics were positive, s/p hydration in ED. No cardiac arrhythmias noted. 2. Normal LVEF at 65%. 3. Hx of recurrent syncope, if persists require EP study. Subjective Subjective Transferred to surgical floor. Denies chest pain or SOB. Objective Last 24 Hour Vital Signs Date Time Temp Pulse Resp B/P Pulse Ox O2 Delivery O2 Flow Rate FiO2 09/20/16 16:00 98.6 83 18 146/85 96 Room Air 09/20/16 12:00 98.8 86 18 130/90 95 Room Air 09/20/16 09:00 83 85 98 09/20/16 08:00 99.5 85 18 129/69 96 Room Air 09/20/16 04:00 98.4 81 18 133/75 95 Room Air 09/20/16 00:00 98.3 77 18 127/81 97 Room Air 09/19/16 21:00 70 75 78 09/19/16 20:00 98.6 83 18 131/83 98 Room Air Intake and Output 09/19/16 09/20/16 19:00 07:00 Intake Total 360 ml Balance 360 ml Intake Oral 360 ml # Voids 1 # Bowel Movements 1 2D Echo: LVEF 65%, rvsp 20 mmHg Laboratory Tests Test 09/20/16 10:05 White Blood Count 10.4 K/UL (4.8-10.8) Red Blood Count 4.52 M/UL (4.20-5.40) Hemoglobin 12.3 G/DL (12.0-16.0) Hematocrit 38.4 % (37.0-47.0) Mean Corpuscular Volume 85 FL (80-99) Mean Corpuscular Hemoglobin 27.3 PG (27.0-31.0) Mean Corpuscular Hemoglobin Concent 32.1 G/DL (32.0-36.0) Red Cell Distribution Width 12.7 % (11.6-14.8) Platelet Count 232 K/UL (150-450) Mean Platelet Volume 7.4 FL (6.5-10.1) Neutrophils (%) (Auto) 64.9 % (45.0-75.0) Lymphocytes (%) (Auto) 29.3 % (20.0-45.0) Monocytes (%) (Auto) 4.3 % (1.0-10.0) Eosinophils (%) (Auto) 0.7 % (0.0-3.0) Basophils (%) (Auto) 0.8 % (0.0-2.0) Sodium Level 138 mEQ/L (135-145) Potassium Level 4.1 mEQ/L (3.4-4.9) Chloride Level 101 mEQ/L (98-107) Carbon Dioxide Level 22 mEQ/L (20-30) Anion Gap 15 (5-15) Blood Urea Nitrogen 11 mg/dL (7-23) Creatinine 0.8 mg/dL (0.5-0.9) Estimat Glomerular Filtration Rate > 60 mL/min (>60) Glucose Level 86 mg/dL (74-106) Calcium Level 8.7 mg/dL (8.6-10.2) Total Bilirubin < 0.2 mg/dL (0.0-1.2) Aspartate Amino Transf (AST/SGOT) 19 U/L (5-40) Alanine Aminotransferase (ALT/SGPT) 15 U/L (3-33) Alkaline Phosphatase 72 U/L (35-104) Total Protein 7.2 g/dL (6.6-8.7) Albumin 3.4 g/dL (3.5-5.2) L Globulin 3.8 g/dL Albumin/Globulin Ratio 0.8 (1.0-2.7) L Microbiology Date/Time Source Procedure Growth Status 09/18/16 16:00 Blood Blood Culture - Preliminary NO GROWTH AFTER 24 HOURS Resulted 09/18/16 15:30 Blood Blood Culture - Preliminary NO GROWTH AFTER 24 HOURS Resulted Objective HEENT: Normocephalic, atraumatic, PERRLA, EOMI Neck: - JVD, no carotid bruit Respiratory: coarse breath sounds B/L Cardiovascular: Normal S1S2, tachycardic, regular, rate and rhythm, no murmurs , gallops or rubs. Gastrointestinal: normal inspection, normal bowel sounds, non tender, soft, no guarding, no hernia Musculoskeletal: normal inspection, back normal, normal range of motion Skin: normal inspection, normal color, no rash MIGUEL ÁNGEL LEWIS Sep 20, 2016 18:52
[2016-09-20] MEDS: cefTRIAXone 2 GM in D5W 110 ML IVPB SCH (20:37)
[2016-09-21 00:10] VITALS: BP 138/69
[2016-09-21 04:25] VITALS: BP 142/87
[2016-09-21 07:03] LABS: BASOPHILS % (AUTO) 0.9 % (0.0-2.0); EOSINOPHILS % (AUTO) 0.6 % (0.0-3.0); MEAN CORPUSCULAR HEMOGLOBIN 26.9 PG (27.0-31.0); MEAN CORPUSCULAR VOLUME 87 FL (80-99); MEAN PLATELET VOLUME 7.1 FL (6.5-10.1); MONOCYTES % (AUTO) 5.8 % (1.0-10.0); NEUTROPHILS % (AUTO) 61.6 % (45.0-75.0); PLATELET COUNT 266 K/UL (150-450); RED BLOOD COUNT 4.86 M/UL (4.20-5.40); RED CELL DISTRIBUTION WIDTH 12.5 % (11.6-14.8); WHITE BLOOD COUNT 8.3 K/UL (4.8-10.8)
[2016-09-21 07:45] LABS: ALANINE AMINOTRANSFERASE 14 U/L (3-33); ALBUMIN/GLOBULIN RATIO 0.8 (1.0-2.7); ANION GAP 15 (5-15); ASPARTATE AMINO TRANSFERASE 18 U/L (5-40); CALCIUM 8.8 mg/dL (8.6-10.2); CARBON DIOXIDE 23 mEQ/L (20-30); CHLORIDE 100 mEQ/L (98-107); CREATININE 0.8 mg/dL (0.5-0.9); GLOMERULAR FILTRATION RATE > 60 mL/min (>60); HEMOLYSIS 5; SODIUM 138 mEQ/L (135-145); TOTAL PROTEIN 7.4 g/dL (6.6-8.7)
[2016-09-21 08:00] VITALS: BP 127/77
[2016-09-21] MEDS: Heparin 5000 units/ml inj SUBQ SCH (08:19)
--- NOTE | 2016-09-21 09:40 | General Progress Note ---
Assessment/Plan Status: stable Assessment/Plan 1. Acute encephalopathy. 2. Sepsis. 3. Community-acquired pneumonia, a provisional diagnosis. 4. Head trauma - a probable diagnosis. 5. Abnormal creatine kinase. 6. Abnormal blood sugar. 7. Gastrointestinal and deep vein thrombosis prophylaxis. plan: neuro, cardio,Notes are reviewed Ok to followup as outpatient Subjective ROS Limited/Unobtainable: No Constitutional: Reports: no symptoms HEENT: Reports: no symptoms Cardiovascular: Reports: no symptoms Allergies: Coded Allergies: ASPIRIN (Verified Allergy, Unknown, 09/18/16) Objective Last 24 Hour Vital Signs Date Time Temp Pulse Resp B/P Pulse Ox O2 Delivery O2 Flow Rate FiO2 09/21/16 08:00 98.2 86 18 127/77 98 Room Air 09/21/16 04:25 97.5 77 18 142/87 98 Room Air 09/21/16 00:10 98.1 81 19 138/69 100 Room Air 09/20/16 21:00 100 98 95 09/20/16 20:14 98.1 92 19 147/85 100 Room Air 09/20/16 16:00 98.6 83 18 146/85 96 Room Air 09/20/16 12:00 98.8 86 18 130/90 95 Room Air Intake and Output 09/20/16 09/21/16 19:00 07:00 Intake Total 500 ml Balance 500 ml Intake Oral 500 ml # Voids 4 2 Laboratory Tests 09/20/16 10:05: White Blood Count 10.4, Red Blood Count 4.52, Hemoglobin 12.3, Hematocrit 38.4, Mean Corpuscular Volume 85, Mean Corpuscular Hemoglobin 27.3, Mean Corpuscular Hemoglobin Concent 32.1, Red Cell Distribution Width 12.7, Platelet Count 232, Mean Platelet Volume 7.4, Neutrophils (%) (Auto) 64.9, Lymphocytes (%) (Auto) 29.3, Monocytes (%) (Auto) 4.3, Eosinophils (%) (Auto) 0.7, Basophils (%) (Auto ) 0.8, Sodium Level 138, Potassium Level 4.1, Chloride Level 101, Carbon Dioxide Level 22, Anion Gap 15, Blood Urea Nitrogen 11, Creatinine 0.8, Estimat Glomerular Filtration Rate > 60, Glucose Level 86, Calcium Level 8.7, Total Bilirubin < 0.2, Aspartate Amino Transf (AST/SGOT) 19, Alanine Aminotransferase (ALT/SGPT) 15, Alkaline Phosphatase 72, Total Protein 7.2, Albumin 3.4L, Globulin 3.8, Albumin/Globulin Ratio 0.8L 09/21/16 05:05: White Blood Count 8.3, Red Blood Count 4.86, Hemoglobin 13.1, Hematocrit 42.1, Mean Corpuscular Volume 87, Mean Corpuscular Hemoglobin 26.9L, Mean Corpuscular Hemoglobin Concent 31.0L, Red Cell Distribution Width 12.5, Platelet Count 266, Mean Platelet Volume 7.1, Neutrophils (%) (Auto) 61.6, Lymphocytes (%) (Auto) 31.0, Monocytes (%) (Auto) 5.8, Eosinophils (%) (Auto) 0.6, Basophils (%) (Auto ) 0.9 09/21/16 05:25: Sodium Level 138, Potassium Level 4.0, Chloride Level 100, Carbon Dioxide Level 23, Anion Gap 15, Blood Urea Nitrogen 10, Creatinine 0.8, Estimat Glomerular Filtration Rate > 60, Glucose Level 85, Calcium Level 8.8, Total Bilirubin 0.3, Aspartate Amino Transf (AST/SGOT) 18, Alanine Aminotransferase (ALT/SGPT) 14, Alkaline Phosphatase 82, Total Protein 7.4, Albumin 3.5, Globulin 3.9, Albumin/ Globulin Ratio 0.8L Height (Feet): 5 Height (Inches): 1.00 Weight (Pounds): 180 General Appearance: WD/WN EENT: PERRL/EOMI Neck: supple Cardiovascular: normal rate Respiratory/Chest: lungs clear Abdomen: soft Extremities: non-tender 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
[2016-09-21 11:35] VITALS: BP 124/64
--- NOTE | 2016-09-22 00:27 | Cardiology Report ---
APPROVED REPORT EKG Measurement Heart [id number] Sinus tachycardia Possible Left atrial enlargement Nonspecific T wave abnormality Abnormal ECG
--- NOTE | 2016-09-22 09:17 | Cardiology Report ---
APPROVED REPORT EXAM: Two-dimensional and M-mode echocardiogram with Doppler and color Doppler. INDICATION Syncope M-Mode DIMENSIONS IVSd1.0 (0.7-1.1cm)Left Atrium (MM)3.1 (1.6-4.0cm) LVDd4.0 (3.5-5.6cm)Aortic Root2.8 (2.0-3.7cm) PWd1.1 (0.7-1.1cm)Aortic Cusp Exc.1.8 (1.5-2.0cm) LVDs2.7 (2.5-4.0cm) PWs1.2 cm Normal left ventricular chamber size, systolic function and wall motion. Left ventricular ejection fraction estimated to be 60-65%. Mild left ventricular hypertrophy. No evidence of pericardial fat or effusion. Right cardiac chamber sizes are within normal limits. Mild left atrial enlargement by 2D. Focal aortic valve sclerosis with adequate cusp excursion Thickened mitral valve leaflets with normal excursion. Mild mitral annulus and aortic root calcification. Pulmonic valve not well visualized. Normal tricuspid valve structure. IVC is normal in size with physiologic collapse. A color flow and spectral Doppler study was performed and revealed: No aortic regurgitation. Trace mitral regurgitation. Left ventricular diastolic dysfunction grade 1. Mild tricuspid regurgitation. Tricuspid systolic velocities suggests peak right ventricular systolic pressure of 20 mmHg
--- NOTE | 2016-09-22 17:47 | Discharge Summary ---
Radha Rai NP 09/22/16 1747: Discharge Summary Hospital Course Date of Admission Sep 18, 2016 at 17:35 Date of Discharge Sep 21, 2016 at 14:09 Admitting Diagnosis Sepsis, Urinary Tract Infection CLAIRE Evans is a 60 year old female who was admitted on Sep 18, 2016 at 17:35 for Sepsis, Urinary Tract Infection Hospital Course [id number] Discharge Discharge Disposition Patient was discharged to Home (01) Discharge Diagnoses: Hannah Giles MD 09/23/16 1054: Radha Rai NP Sep 22, 2016 17:47 Hannah Giles MD Sep 23, 2016 10:54
--- NOTE | 2016-09-23 02:28 | Discharge Summary 2 SIG ---
DATE OF ADMISSION: 09/18/2016 DATE OF DISCHARGE: 09/21/2016 CONSULTANTS: 1. Scooby Sandhu M.D. 2. Jose Peters M.D. BRIEF HOSPITAL COURSE: The patient is a 60-year-old, female with unremarkable past medical history, who presented with acute onset of loss of consciousness. It happened at home. There was no weakness and possibility of head trauma cannot be excluded. There was no reported loss of control over bladder or bowel. The patient gained her consciousness after. On evaluation at ED, the patient was febrile, temperature of 101.5 and tachycardic at 132. Laboratories showed leukocytosis with WBC at 16. CAT scan of the abdomen and pelvis showed bibasilar lung infiltrate, right greater than the left with fat containing umbilical hernia. Urinalysis was unremarkable. The patient was admitted for acute encephalopathy and sepsis and possible community-acquired pneumonia and possible head trauma. Dr. Peters was consulted to evaluate new changes in vertigo and transient loss of consciousness. A CAT scan of the brain was normal with no pathology or no midline shift and assessed the patient with a syncopal episode possibly vasovagal with brief paroxysmal positional vertigo and was recommended IV hydration. On assessment, there was no clinical description to suggest a seizure or TIA. Dr. Sandhu was likewise consulted. Syncopal episode was secondary to hypovolemia as initial orthostatic vital signs were positive. The patient was given IV hydration. There was no cardiac arrhythmias noted. An echocardiogram was done and showed left ventricular ejection fraction of 65%. Troponin has been negative x2. Blood culture did not isolate any growth. She was given azithromycin and ceftriaxone and was discharged home. Advised to follow up as an outpatient. FINAL DIAGNOSES: 1. Acute metabolic encephalopathy. 2. Sepsis. 3. Possible community-acquired pneumonia. 4. Possible head trauma. 5. Abnormal creatine kinase. 6. Abnormal blood sugar. 7. Syncopal episode most likely due to hypovolemia. Hannah Giles M.D. I have been assigned to dictate discharge summary on this account and I was not involved in the patient's management. Radha Rai N.P. DR: SUSY JOB#: [id number] CC:
== END 2016-09-21 14:09 | disposition home or self-care (01) | DRG 720 ==
LOC: EMR 16:41 → 2E 17:35 → EDBEDREQ 18:47 → 3E 09-19 18:00
DX: A41.9 Sepsis, unspecified organism (principal); G93.41 Metabolic encephalopathy; J18.9 Pneumonia, unspecified organism; M62.82 Rhabdomyolysis; S09.90XA Unspecified injury of head, initial encounter; M54.9 Dorsalgia, unspecified; E86.1 Hypovolemia; I47.9 Paroxysmal tachycardia, unspecified; G89.29 Other chronic pain; R73.09 Other abnormal glucose; X58.XXXA Exposure to other specified factors, initial encounter; Y92.89 Other specified places as the place of occurrence of the external cause
CPT/HCPCS: 36415; 70450; 71010; 74176; 80053; 80061; 81003; 82550; 82553; 83036; 83605; 83880; 84443; 84484; 85007; 85025; 87040; 93005; 93306